=== PATIENT | female | born 1995 | race African-American/Black ===

== ENCOUNTER 2021-09-15 12:25 | Outpatient (CLI) | payer BC | END 2021-09-15 12:26 | disposition home or self-care (01) | LOC: CSHULT 12:25 | PROVIDERS: ATTEND Obstetrics & Gynecology Reproductive Endocrinology | DX: F52.0 Hypoactive sexual desire disorder (principal); Z87.42 Personal history of other diseases of the female genital tract | CPT/HCPCS: 76856 ==